=== PATIENT | male | born 2000 | race Two or more races ===

== ENCOUNTER 2024-01-23 16:33 | Emergency (ER) | payer MEDICAID, OTHER ==
[~2024-01-23] VITALS: Ht 180.3 cm; Wt 73.1 kg
[2024-01-23 18:12] VITALS: BP 116/76; PULSE 70; RESP 14; TEMP 98.9; O2SAT 97
[2024-01-23] MEDS: KETOROLAC TROMETH 60MG/2ML VIAL IM ONE (18:33)
[2024-01-23] MEDS ORDERED: METH-1181 PO (18:33)
[2024-01-23] MEDS ORDERED: IBUP-1456 PO (18:33)
== END 2024-01-23 19:05 | disposition home or self-care (01) ==
LOC: ER 16:40
DX: S13.4XXA Sprain of ligaments of cervical spine, initial encounter (principal); S80.02XA Contusion of left knee, initial encounter; Z79.899 Other long term (current) drug therapy; V43.63XA Car passenger injured in collision with pick-up truck in traffic accident, initial encounter; Y93.89 Activity, other specified; Y92.89 Other specified places as the place of occurrence of the external cause; Y99.8 Other external cause status
CPT/HCPCS: 96372; 99283; J1885